=== PATIENT | female | born 1990 | race Caucasian/White ===

== ENCOUNTER 2017-03-10 10:34 | Emergency (ER) | payer OTHER ==
[2017-03-10] MEDS ORDERED: IOPAMIDOL 300 (61%) 150 ML VIAL IV ONE (10:35)
[2017-03-10 10:58] LABS: SPECIFIC GRAVITY 1.015 (1.001-1.030); URINE BILIRUBIN NEGATIVE (NEGATIVE); URINE BLOOD 1+ (NEGATIVE); URINE GLUCOSE (UA) NEGATIVE (NEGATIVE); URINE LEUKOCYTE ESTERASE NEGATIVE (NEGATIVE); URINE NITRITE NEGATIVE (NEGATIVE); URINE PROTEIN NEGATIVE (NEGATIVE); URINE UROBILINOGEN NORMAL (0-1 mg/dl)
[2017-03-10 10:59] LABS: URINE APPEARANCE CLEAR; URINE COLOR YELLOW
[2017-03-10 11:02] LABS: HCG,QUALITATIVE URINE NEGATIVE
[2017-03-10 11:32] LABS: URINE BACTERIA 0; URINE RBC 0-1 /hpf; URINE WBC NEG /hpf
[2017-03-10 13:02] LABS: ABSOLUTE NEUTROPHIL COUNT 2.7 K/mm3 (1.8-7.7); BASO # 0.1 K/mm3 (0.0-0.2); BASO % 1.3 % (0.2-1.0); EOS # 0.2 (0.0-0.5); EOS % 4.3 % (0.9-2.9); HEMATOCRIT 40.7 % (37.0-47.0); HEMOGLOBIN 13.7 gm/l (12.0-16.0); IMM NEUT% 0.2 % (0-1); LYMPH # 1.9 (1.0-4.8); LYMPH % 34.4 % (15-45); MEAN CELL VOLUME 86.6 fl (81.0-99.0); MEAN CORPUSCULAR HEMOGLOBIN 29.1 pg (27.0-31.0); MEAN CORPUSCULAR HGB CONC 33.7 g/dl (33.0-37.0); MEAN PLATELET VOLUME 10.2 fl (7.4-10.4); MONO # 0.6 (0.0-0.8); MONO % 10.7 % (4-12); NEUT % 49.1 % (43-75); PLATELET COUNT 306 K/mm3 (130-400); RED CELL DISTRIBUTION WIDTH 12.1 % (11.5-14.5)
[2017-03-10 13:13] LABS: ALB/GLOB RATIO 1.4 (>1.0)
--- NOTE | 2017-03-10 13:46 | CT ---
Exam: CT abdomen and pelvis with contrast COMPARISON: 09/15/2010 INDICATION: Right lower quadrant pain. TECHNIQUE: CT examination of the abdomen and pelvis was obtained following the administration of 100 of Isovue-300 100 intravenous contrast. FINDINGS: The small bowel within the deep pelvis demonstrates increased mucosal enhancement although no significant bowel wall thickening is seen. Mesenteric lymph nodes are noted, or significant for number rather than size, and are likely reactive. The appendix is normal. There is no bowel obstruction, free air or free intraperitoneal fluid; there is minimal amount of fluid in the left adnexa, within physiologic range. The uterus is present and within normal limits. A NuvaRing is noted in the vagina. Ovaries are within normal limits there is no adnexal mass. There is only minimal amount of stool within the descending colon. The rectum is gas-filled. Some fluid is noted in the cecum. Gallbladder is contracted. The liver, spleen, pancreas, kidneys and adrenal glands are unremarkable. Lung bases are clear. No worrisome osseous abnormality is identified. IMPRESSION: The mucosa of the small bowel appears to be hyperenhancing, particularly in the deep pelvis, although no significant bowel wall thickening is identified. Correlate for signs and symptoms of an underlying enteritis. No definite findings of inflammatory bowel disease are seen. The appendix is normal. Findings were discussed with Dr. Bennett 1342 hours 03/10/2017.
[2017-03-11 14:19] LABS: CHLAMYDIA BD Negative (Negative); N.GONORRHOEAE BD Negative (Negative); SOURCE Urine (())
== END 2017-03-10 14:34 | disposition home or self-care (01) ==
LOC: ED 10:34
DX: K52.9 Noninfective gastroenteritis and colitis, unspecified (principal); R10.30 Lower abdominal pain, unspecified
CPT/HCPCS: 87491; 87591; 81025; 85025; 80053; 81001; 74177; 99284 ×2; Q9967